=== PATIENT | female | born 1955 | race Caucasian/White ===

== ENCOUNTER 2021-01-06 04:50 | Day surgery (SDC) | payer OTHER ==
[2021-01-03 12:31] VITALS: BMI 21.0
[2021-01-06] MEDS ORDERED: PROPOFOL 20 ML ONE (13:20)
[2021-01-06] MEDS ORDERED: MIDAZOLAM HCL 2 MG/2 ML SINGLE DOSE VIAL ONE (13:21)
[2021-01-06] MEDS ORDERED: oxyCODONE HCL 5 MG TABLET PO PRN (14:58)
[2021-01-06] MEDS ORDERED: ONDANSETRON 4 MG/2 ML VIAL IVPUSH PRN (14:58)
[2021-01-06] MEDS ORDERED: LACTATED RINGERS SOLUTION 1,000 ML IV SCH (15:00)
[2021-01-06 16:36] VITALS: BP 123/76; PULSE 79; TEMP 98.2
== END 2021-01-06 16:30 | disposition home or self-care (01) ==
LOC: JASU-SURG 04:50
PROVIDERS: ATTEND Urology
PROC: 0TBB8ZZ Excision of Bladder, Via Natural or Artificial Opening Endoscopic (ICD-10-PCS; principal; 2021-01-06 12:30)
DX: R31.0 Gross hematuria (principal); N32.89 Other specified disorders of bladder
CPT/HCPCS: 86850; 86900; 86901; 94760